=== PATIENT | male | born 1945 | race Caucasian/White ===

== ENCOUNTER 2022-12-30 09:23 | Inpatient (IN) | payer BC, OTHER ==
[2022-12-30] MEDS ORDERED: KETOROLAC TROMETHAMINE 15 MG/ML VIAL IVPUSH ONE (10:05)
[2022-12-30] MEDS ORDERED: KETOROLAC TROMETHAMINE 15 MG/ML VIAL ONE ×2 (10:13→10:14)
[2022-12-30 10:28] LABS: BASO % 0.3 % (0-2.0); EOS % 2.2 % (0-4.5); HEMATOCRIT 40.9 % (35.4-49); LYMPH % 19.1 % (8-40); MCH 29.5 pg (25.7-33.7); MCHC 34.3 g/dl (32.0-35.9); MEAN CELL VOLUME 86.1 fl (80-96); MEAN PLT VOLUME 9.9 fl (7.5-11.1); NEUT % 69.4 % (42.8-82.8); PLATELET COUNT 154 10^3/uL (134-434); RBC 4.76 M/mm3 (4.00-5.60); RDW 13.9 % (11.9-15.9); WHITE BLOOD COUNT 10.2 K/mm3 (4.0-10.0)
[2022-12-30 10:30] LABS: EPI CELLS 19 /uL (0-25.1); HYALINE CASTS 3 /uL (0-3.1); PH,URINE 6.5 (5.0-8.0); URINE APPEARANCE CLOUDY; URINE BACTERIA 418 /uL (0-1359); URINE BILIRUBIN NEGATIVE (NEGATIVE); URINE COLOR YELLOW; URINE GLUCOSE (UA) NEGATIVE (NEGATIVE); URINE KETONE NEGATIVE (NEGATIVE); URINE LEUK ESTERASE 3+ (NEGATIVE); URINE NITRITE NEGATIVE (NEGATIVE); URINE PROTEIN 1+ (NEGATIVE); URINE RBC 31 /uL (0-23.9); URINE UROBILINOGEN 0.2 mg/dL (0.2-1.0); URINE WBC 1382 /uL (0-25.8)
[2022-12-30 10:48] LABS: CALCIUM 9.1 mg/dL (8.5-10.1)
[2022-12-30 10:49] LABS: ALBUMIN 3.7 g/dl (3.4-5.0); BLOOD UREA NITROGEN 45.1 mg/dL (7-18)
[2022-12-30 10:52] LABS: CREATININE 5.6 mg/dL (0.55-1.3)
[2022-12-30 10:53] LABS: BILIRUBIN,TOTAL 0.5 mg/dL (0.2-1); TOT PROT 6.9 g/dl (6.4-8.2)
[2022-12-30] MEDS ORDERED: CEFTRIAXONE 1,000 MG in DEXTROSE 5%-WATER - 50 ML IVPB ONE (11:53)
[2022-12-30] MEDS ORDERED: CEFTRIAXONE 1 GM/50 ML BAG ONE (12:28)
[2022-12-30] MEDS ORDERED: LACTATED RINGERS SOLUTION 1000 ML INFUS.BAG IV ONE (13:31)
[2022-12-30] MEDS ORDERED: morphine CARPU-JECT 2 MG/1 ML DISP.SYRIN IVPUSH PRN (14:31)
[2022-12-30 14:44] LABS: INR 1.26 (0.83-1.09); PROTHROMBIN TIME (PATIENT) 14.6 SEC (9.7-13.0)
[2022-12-30 14:47] LABS: ACTIVATED PTT 34.3 SECONDS (25.2-36.5)
[2022-12-30 15:23] LABS: URIC ACID 5.9 mg/dL (2.6-7.2)
[2022-12-30 17:20] VITALS: BMI 33.4
[2022-12-30] MEDS: SODIUM CHLORIDE 1,000 ML IV SCH (17:46)
[2022-12-30] MEDS: INSULIN SLIDING SCALE (NOVOLOG) 1 VIAL SQ SCH ×2 (18:15→22:40)
[2022-12-30] MEDS: HEPARIN NA (PORCINE) 5,000 UNITS/ML 1ML VIAL SQ SCH ×2 (18:23→22:34)
[2022-12-30] MEDS: METOPROLOL TARTRATE 50 MG TABLET (FP) PO SCH (22:35)
[2022-12-31] MEDS: SODIUM CHLORIDE 1,000 ML IV SCH ×2 (03:25→13:44)
[2022-12-31] MEDS: INSULIN SLIDING SCALE (NOVOLOG) 1 VIAL SQ SCH ×4 (06:47→22:09)
[2022-12-31] MEDS: METOPROLOL TARTRATE 50 MG TABLET (FP) PO SCH ×2 (09:21→22:03)
[2022-12-31] MEDS: TAMSULOSIN HCL 0.4 MG CAP PO SCH (09:22)
[2022-12-31] MEDS: ROSUVASTATIN CA 20 MG TABLET PO SCH (09:22)
[2022-12-31] MEDS: CEFTRIAXONE 1 GM in DEXTROSE 5%-WATER - 50 ML IVPB SCH (09:22)
[2022-12-31 09:26] LABS: BASO % 0.3 % (0-2.0); EOS % 2.3 % (0-4.5); HEMATOCRIT 38.8 % (35.4-49); LYMPH % 17.8 % (8-40); MCH 29.1 pg (25.7-33.7); MCHC 33.6 g/dl (32.0-35.9); MEAN CELL VOLUME 86.6 fl (80-96); MEAN PLT VOLUME 10.9 fl (7.5-11.1); MONO % 8.4 % (3.8-10.2); NEUT % 71.2 % (42.8-82.8); PLATELET COUNT 151 10^3/uL (134-434); RBC 4.47 M/mm3 (4.00-5.60); RDW 14.2 % (11.9-15.9); WHITE BLOOD COUNT 9.4 K/mm3 (4.0-10.0)
[2022-12-31 10:06] LABS: BLOOD UREA NITROGEN 49.3 mg/dL (7-18); CALCIUM 8.6 mg/dL (8.5-10.1)
[2022-12-31 10:08] LABS: ALBUMIN 3.3 g/dl (3.4-5.0)
[2022-12-31 10:09] LABS: CREATININE 6.8 mg/dL (0.55-1.3)
[2022-12-31 10:11] LABS: BILIRUBIN,TOTAL 0.5 mg/dL (0.2-1); TOT PROT 6.3 g/dl (6.4-8.2)
[2022-12-31] MEDS ORDERED: SODIUM BICARBONATE 8.4% 50 MEQ/50 ML DISP.SYRIN IVPUSH ONE (11:50)
[2022-12-31] MEDS ORDERED: DEXTROSE 50%-WATER - 25 GM/50 ML VIAL IVPUSH ONE (11:52)
[2022-12-31] MEDS ORDERED: INSULIN REGULAR HUMAN 100 UNITS/ML *VIAL SQ ONE (11:52)
[2022-12-31] MEDS ORDERED: ALBUTEROL SO4 0.083% IH SOL 2.5 MG/3 ML VIAL.NEB. NEB PRN (11:53)
[2022-12-31] MEDS ORDERED: SODIUM BICARBONATE 8.4% 50 MEQ/50 ML VIAL IVPUSH ONE (12:00)
[2022-12-31] MEDS ORDERED: CALCIUM GLUCONATE 10% - 1,000 MG/10 ML VIAL IVPB ONE (12:00)
[2022-12-31] MEDS: SODIUM ZIRCONIUM CYCLOSILICATE (LOKELMA) 5 GM PACKET PO SCH ×2 (12:59→22:03)
[2022-12-31] MEDS ORDERED: SODIUM BICARBONATE 8.4% 50 MEQ/50 ML VIAL IVPB ONE (13:00)
[2022-12-31] MEDS ORDERED: DEXTROSE 50%-WATER 25 GM/50 ML DISP.SYRIN IVPUSH ONE (13:15)
[2022-12-31] MEDS: ACETAMINOPHEN 325 MG TABLET (FP) PO PRN ×2 (14:24→21:01)
[2022-12-31 19:15] LABS: HEMATOCRIT 37.1 % (35.4-49); HEMOGLOBIN 12.5 GM/dL (11.7-16.9); MCH 29.2 pg (25.7-33.7); MCHC 33.7 g/dl (32.0-35.9); MEAN CELL VOLUME 86.4 fl (80-96); MEAN PLT VOLUME 10.5 fl (7.5-11.1); PLATELET COUNT 131 10^3/uL (134-434); RBC 4.29 M/mm3 (4.00-5.60); WHITE BLOOD COUNT 8.6 K/mm3 (4.0-10.0)
[2022-12-31 19:43] LABS: CALCIUM 8.5 mg/dL (8.5-10.1)
[2022-12-31 19:44] LABS: BLOOD UREA NITROGEN 55.4 mg/dL (7-18)
[2022-12-31 19:56] LABS: CREATININE 7.4 mg/dL (0.55-1.3)
[2023-01-01] MEDS ORDERED: SODIUM CHLORIDE NASAL SPRAY 44 ML BOTTLE NS PRN ×2 (00:03→14:00)
[2023-01-01] MEDS: INSULIN SLIDING SCALE (NOVOLOG) 1 VIAL SQ SCH ×4 (06:11→21:28)
[2023-01-01] MEDS: TAMSULOSIN HCL 0.4 MG CAP PO SCH (10:28)
[2023-01-01] MEDS: ROSUVASTATIN CA 20 MG TABLET PO SCH (10:28)
[2023-01-01] MEDS: CEFTRIAXONE 1 GM in DEXTROSE 5%-WATER - 50 ML IVPB SCH (10:31)
[2023-01-01] MEDS: SODIUM ZIRCONIUM CYCLOSILICATE (LOKELMA) 5 GM PACKET PO SCH ×2 (10:32→11:00)
[2023-01-01] MEDS: SODIUM CHLORIDE 1,000 ML IV SCH ×2 (10:32→15:53)
[2023-01-01] MEDS: METOPROLOL TARTRATE 50 MG TABLET (FP) PO SCH ×2 (10:32→21:21)
[2023-01-01 10:45] LABS: CHLORIDE 106 mmol/L (98-107); SODIUM 138 mmol/L (136-145)
[2023-01-01 10:55] LABS: GLUCOSE,RANDOM 171 mg/dL (74-106)
[2023-01-01 10:56] LABS: SGPT/ALT 18 U/L (13-61)
[2023-01-01 10:58] LABS: ALBUMIN 3.3 g/dl (3.4-5.0); BILIRUBIN,TOTAL 0.4 mg/dL (0.2-1); BLOOD UREA NITROGEN 61.2 mg/dL (7-18)
[2023-01-01 10:59] LABS: ALK PHOS 63 U/L (45-117); ANION GAP 10 MMOL/L (8-16); CO2 23 mmol/L (21-32); SGOT/AST 18 U/L (15-37)
[2023-01-01 11:01] LABS: CALCIUM 8.4 mg/dL (8.5-10.1)
[2023-01-01 11:03] LABS: CREATININE 8.3 mg/dL (0.55-1.3)
[2023-01-01] MEDS ORDERED: PROPOFOL 20 ML ONE (13:19)
[2023-01-01] MEDS ORDERED: MIDAZOLAM HCL 2 MG/2 ML SINGLE DOSE VIAL ONE (13:19)
[2023-01-01] MEDS ORDERED: LIDOCAINE HCL 2% JELLY 11 ML TP ONE (13:21)
[2023-01-01] MEDS ORDERED: ceFAZolin SODIUM 1 GM VIAL IVPB ONE (13:30)
[2023-01-01] MEDS ORDERED: ceFAZolin SODIUM 1 GM VIAL ONE ×2 (13:38)
[2023-01-01] MEDS ORDERED: ONDANSETRON 4 MG/2 ML VIAL IVPUSH PRN (13:55)
[2023-01-01] MEDS ORDERED: oxyCODONE HCL 5 MG TABLET PO PRN (13:55)
[2023-01-01] MEDS ORDERED: ALBUTEROL SO4 0.083% IH SOL 2.5 MG/3 ML VIAL.NEB. NEB PRN (14:00)
[2023-01-01] MEDS ORDERED: ACETAMINOPHEN 325 MG TABLET (FP) PO PRN (14:00)
[2023-01-02] MEDS: SODIUM CHLORIDE 1,000 ML IV SCH (01:12)
[2023-01-02] MEDS: INSULIN SLIDING SCALE (NOVOLOG) 1 VIAL SQ SCH ×4 (08:02→22:28)
[2023-01-02 09:18] LABS: BASO % 0.3 % (0-2.0); EOS % 4.1 % (0-4.5); HEMATOCRIT 34.8 % (35.4-49); HEMOGLOBIN 11.3 GM/dL (11.7-16.9); LYMPH % 18.3 % (8-40); MCHC 32.6 g/dl (32.0-35.9); MEAN CELL VOLUME 85.9 fl (80-96); MONO % 10.6 % (3.8-10.2); NEUT % 66.7 % (42.8-82.8); PLATELET COUNT 122 10^3/uL (134-434); RBC 4.05 M/mm3 (4.00-5.60); RDW 14.1 % (11.9-15.9)
[2023-01-02 09:43] LABS: CALCIUM 8.2 mg/dL (8.5-10.1)
[2023-01-02 09:47] LABS: CREATININE 7.3 mg/dL (0.55-1.3); PHOSPHOROUS 5.8 mg/dL (2.5-4.9)
[2023-01-02 09:49] LABS: BLOOD UREA NITROGEN 58.6 mg/dL (7-18)
[2023-01-02] MEDS: METOPROLOL TARTRATE 50 MG TABLET (FP) PO SCH ×2 (09:54→22:18)
[2023-01-02] MEDS: TAMSULOSIN HCL 0.4 MG CAP PO SCH (09:54)
[2023-01-02] MEDS: ROSUVASTATIN CA 20 MG TABLET PO SCH (09:54)
[2023-01-02] MEDS: CEFTRIAXONE 1 GM in DEXTROSE 5%-WATER - 50 ML IVPB SCH (09:54)
[2023-01-02] MEDS: SODIUM CHLORIDE 0.45% 1,000 ML IV SCH (18:13)
[2023-01-02] MEDS: MELATONIN 1 MG TABLET PO SCH (22:17)
[2023-01-03] MEDS: SODIUM CHLORIDE 0.45% 1,000 ML IV SCH ×2 (04:15→15:36)
[2023-01-03 07:34] LABS: CALCIUM 8.3 mg/dL (8.5-10.1)
[2023-01-03 07:35] LABS: BLOOD UREA NITROGEN 52.7 mg/dL (7-18)
[2023-01-03 07:37] LABS: CREATININE 5.6 mg/dL (0.55-1.3)
[2023-01-03 07:39] LABS: BILIRUBIN,TOTAL 0.3 mg/dL (0.2-1); TOT PROT 6.1 g/dl (6.4-8.2)
[2023-01-03] MEDS: CEFTRIAXONE 1 GM in DEXTROSE 5%-WATER - 50 ML IVPB SCH (09:51)
[2023-01-03] MEDS: INSULIN SLIDING SCALE (NOVOLOG) 1 VIAL SQ SCH ×4 (09:51→21:48)
[2023-01-03] MEDS: METOPROLOL TARTRATE 50 MG TABLET (FP) PO SCH ×2 (09:52→21:47)
[2023-01-03] MEDS: ROSUVASTATIN CA 20 MG TABLET PO SCH (09:52)
[2023-01-03] MEDS: TAMSULOSIN HCL 0.4 MG CAP PO SCH (09:52)
[2023-01-03 16:08] LABS: ATYPICAL pANCA <1:20 titer (Neg:<1:20); C-ANCA <1:20 titer (Neg:<1:20)
[2023-01-03] MEDS: MELATONIN 1 MG TABLET PO SCH (21:47)
[2023-01-04] MEDS: SODIUM CHLORIDE 0.45% 1,000 ML IV SCH ×2 (02:14→12:50)
[2023-01-04] MEDS: INSULIN SLIDING SCALE (NOVOLOG) 1 VIAL SQ SCH ×2 (06:54→12:34)
[2023-01-04 08:46] LABS: HEMATOCRIT 37.2 % (35.4-49); MCHC 32.4 g/dl (32.0-35.9); MEAN CELL VOLUME 86.5 fl (80-96); MEAN PLT VOLUME 9.5 fl (7.5-11.1); PLATELET COUNT 146 10^3/uL (134-434); RDW 14.2 % (11.9-15.9); WHITE BLOOD COUNT 6.5 K/mm3 (4.0-10.0)
[2023-01-04 09:12] LABS: CALCIUM 8.2 mg/dL (8.5-10.1)
[2023-01-04 09:13] LABS: ALBUMIN 2.8 g/dl (3.4-5.0)
[2023-01-04 09:16] LABS: CREATININE 4.2 mg/dL (0.55-1.3)
[2023-01-04 09:17] LABS: BILIRUBIN,TOTAL 0.2 mg/dL (0.2-1); TOT PROT 5.8 g/dl (6.4-8.2)
[2023-01-04] MEDS: METOPROLOL TARTRATE 50 MG TABLET (FP) PO SCH (09:47)
[2023-01-04] MEDS: TAMSULOSIN HCL 0.4 MG CAP PO SCH (09:47)
[2023-01-04] MEDS: CEFTRIAXONE 1 GM in DEXTROSE 5%-WATER - 50 ML IVPB SCH (09:47)
[2023-01-04] MEDS: ROSUVASTATIN CA 20 MG TABLET PO SCH (09:47)
[2023-01-04 15:36] VITALS: BP 114/58; PULSE 65; RESP 18; TEMP 98.1
== END 2023-01-04 17:00 | disposition home or self-care (01) | DRG 661 ==
LOC: JER 09:23 → JERBED 12:34 → J5S 16:39
PROVIDERS: ADMIT Internal Medicine; ATTEND Internal Medicine
PROC: 0T778DZ Dilation of Left Ureter with Intraluminal Device, Via Natural or Artificial Opening Endoscopic (ICD-10-PCS; 2023-01-01)
PROC: BT1FZZZ Fluoroscopy of Left Kidney, Ureter and Bladder (ICD-10-PCS; principal; 2023-01-01 13:00)
DX: N13.6 Pyonephrosis (principal); N17.9 Acute kidney failure, unspecified; I48.0 Paroxysmal atrial fibrillation; N40.0 Benign prostatic hyperplasia without lower urinary tract symptoms; M10.9 Gout, unspecified; E66.9 Obesity, unspecified; Z68.33 Body mass index [BMI] 33.0-33.9, adult; I12.9 Hypertensive chronic kidney disease with stage 1 through stage 4 chronic kidney disease, or unspecified chronic kidney disease; E11.22 Type 2 diabetes mellitus with diabetic chronic kidney disease; N18.9 Chronic kidney disease, unspecified; E87.5 Hyperkalemia; R31.9 Hematuria, unspecified
CPT/HCPCS: 36415; 71046-TC-FY; 74176-TC; 76000-TC-FY; 80048; 80053; 80061; 81003; 82570; 82962; 83036; 83520; 83735; 84100; 84155; 84165; 84300; 84443; 84550; 85025; 85027; 85610; 85730; 86038; 86256; 86850; 86900; 86901; 87086; 93005; 93010; 94760; 99285-25; C2617; C9803-CS; J1644; U0003; U0005

== ENCOUNTER 2023-01-13 08:25 | Day surgery (SDC) | payer OTHER ==
[2023-01-09 17:22] VITALS: BMI 31.4
[2023-01-13] MEDS ORDERED: ceFAZolin SODIUM 1 GM VIAL IVPB ONE (12:25)
[2023-01-13] MEDS ORDERED: SODIUM CHLORIDE 0.9% 1000 ML INFUS.BAG IV SCH (14:45)
[2023-01-13] MEDS: SODIUM CHLORIDE 1,000 ML IV SCH (19:30)
[2023-01-13] MEDS: oxyCODONE HCL 5 MG TABLET PO PRN (21:57)
[2023-01-14] MEDS: oxyCODONE HCL 5 MG TABLET PO PRN ×2 (01:46→08:26)
[2023-01-14] MEDS ORDERED: ONDANSETRON 4 MG/2 ML VIAL IVPB PRN (09:22)
[2023-01-14] MEDS ORDERED: METOPROLOL TARTRATE 50 MG TABLET (FP) PO SCH (10:00)
[2023-01-14] MEDS: SODIUM CHLORIDE 1,000 ML IV SCH ×2 (10:13→15:28)
[2023-01-14 10:35] LABS: CALCIUM 8.9 mg/dL (8.5-10.1)
[2023-01-14 10:36] LABS: BLOOD UREA NITROGEN 33.6 mg/dL (7-18)
[2023-01-14 10:39] LABS: CREATININE 3.6 mg/dL (0.55-1.3)
[2023-01-14] MEDS: INSULIN SLIDING SCALE (NOVOLOG) 1 VIAL SQ SCH ×2 (11:53→15:29)
[2023-01-14 13:14] VITALS: RESP 20
[2023-01-14 14:53] VITALS: BP 147/76; PULSE 104; TEMP 97
[2023-01-14] MEDS ORDERED: ROSUVASTATIN CA 20 MG TABLET PO SCH (22:00)
== END 2023-01-14 15:57 | disposition home or self-care (01) ==
LOC: JASUSAT 08:25 → SUATTDRO 08:25 → JASU-SURG 08:25 → J6S 20:55 → JASUSAT 01-14 15:57
PROVIDERS: ATTEND Internal Medicine
PROC: 0TC78ZZ Extirpation of Matter from Left Ureter, Via Natural or Artificial Opening Endoscopic (ICD-10-PCS; principal; 2023-01-13 11:30)
PROC: 0VT08ZZ Resection of Prostate, Via Natural or Artificial Opening Endoscopic (ICD-10-PCS; 2023-01-13 11:30)
PROC: BT1FYZZ Fluoroscopy of Left Kidney, Ureter and Bladder using Other Contrast (ICD-10-PCS; 2023-01-13 11:30)
PROC: 0TP98DZ Removal of Intraluminal Device from Ureter, Via Natural or Artificial Opening Endoscopic (ICD-10-PCS; 2023-01-13 11:30)
DX: N40.1 Benign prostatic hyperplasia with lower urinary tract symptoms (principal); N13.2 Hydronephrosis with renal and ureteral calculous obstruction; R33.9 Retention of urine, unspecified; R31.0 Gross hematuria
CPT/HCPCS: 36415; 76000-TC-FY; 80048; 82360; 82962; 88300-TC; 88305-TC; 88342-TC; 94760

== ENCOUNTER 2023-05-08 05:23 | Day surgery (SDC) | payer OTHER ==
[2023-05-05 09:35] VITALS: BMI 30.7
[2023-05-08] MEDS ORDERED: MIDAZOLAM HCL 2 MG/2 ML SINGLE DOSE VIAL ONE (13:36)
[2023-05-08] MEDS ORDERED: PROPOFOL 20 ML ONE (13:36)
[2023-05-08] MEDS ORDERED: ceFAZolin SODIUM 1 GM VIAL ONE (13:40)
[2023-05-08] MEDS ORDERED: SODIUM CHLORIDE 0.9% P/F 10 ML VIAL IJ ONE (13:40)
[2023-05-08] MEDS ORDERED: LIDOCAINE HCL/PF 2% SDV 5ML VIAL ONE (13:40)
[2023-05-08] MEDS ORDERED: GENTAMICIN SO4 80 MG/2 ML VIAL ONE (13:50)
[2023-05-08] MEDS ORDERED: ceFAZolin SODIUM 1 GM VIAL IVPB ONE (13:54)
[2023-05-08] MEDS ORDERED: ONDANSETRON 4 MG/2 ML VIAL ONE (13:57)
[2023-05-08] MEDS ORDERED: DEXAMETHASONE SOD PHOSPHATE 4 MG/1 ML VIAL ONE (13:57)
[2023-05-08] MEDS ORDERED: GENTAMICIN SO4 80 MG/2 ML VIAL IVPB ONE (13:58)
[2023-05-08] MEDS ORDERED: FUROSEMIDE 40 MG/4 ML INJECTABLE VIAL ONE (14:11)
[2023-05-08] MEDS ORDERED: KETOROLAC TROMETHAMINE 30 MG/1 ML VIAL ONE (14:19)
[2023-05-08] MEDS ORDERED: oxyCODONE HCL 5 MG TABLET PO PRN ×2 (14:43→14:49)
[2023-05-08] MEDS ORDERED: DEXTROSE 5%-0.45% SALINE 1,000 ML IV SCH (14:45)
[2023-05-08] MEDS ORDERED: PROMETHAZINE HCL 25 MG/1 ML VIAL IVPB PRN (14:49)
[2023-05-08] MEDS ORDERED: ONDANSETRON 4 MG/2 ML VIAL IVPUSH PRN (14:49)
[2023-05-08] MEDS ORDERED: LACTATED RINGERS SOLUTION 1,000 ML IV SCH (15:00)
[2023-05-08 17:00] VITALS: BP 131/61; PULSE 89; RESP 20; TEMP 97.9
== END 2023-05-08 16:50 | disposition home or self-care (01) ==
LOC: JASU-SURG 05:23
PROVIDERS: ATTEND Urology
PROC: 0TC18ZZ Extirpation of Matter from Left Kidney, Via Natural or Artificial Opening Endoscopic (ICD-10-PCS; principal; 2023-05-08 13:30)
PROC: 0T778DZ Dilation of Left Ureter with Intraluminal Device, Via Natural or Artificial Opening Endoscopic (ICD-10-PCS; 2023-05-08 13:30)
DX: N20.0 Calculus of kidney (principal)
CPT/HCPCS: 76000-TC-FY; 82962; 88300-TC; 94760; C1758; C2617